=== PATIENT | female | born 1970 | race African-American/Black ===

== ENCOUNTER 2016-10-28 05:20 | Day surgery (SDC) | payer OTHER ==
[~2016-10-28] VITALS: Ht 170.2 cm; Wt 78.3 kg
--- NOTE | ~2016-10-28 | O ---
[facility] [place] [address] OPERATIVE REPORT Name: JHONATAN CARLOS Room #: 150-2 [facility] M.R.#: [id number] Admission: 10/28/16 Attend Phys: Ron Ruano MD Discharge: Date of : 68 Report #: [id number] THIS REPORT FOR: //name// CC: Jenn Ruano DATE OF SERVICE: 10/28/[address] Rno Ruano and Dr. Jenn Hensley. PREOPERATIVE DIAGNOSIS: Umbilical hernia. POSTOPERATIVE DIAGNOSIS: Umbilical hernia. PROCEDURE: Umbilical hernia repair. SURGEON: Ron Ruano MD. ANESTHESIA: Local IV sedation. DESCRIPTION OF PROCEDURE: The patient was brought to the operating room and placed on operative table in the supine position. Sequential compression devices were in place for DVT prophylaxis. The patient underwent IV sedation. The abdomen was then prepped and draped in a sterile fashion. There was no indication for preoperative antibiotics. The patient's umbilicus was then infiltrated with 0.5% Marcaine and 1% Xylocaine in a 1:1 mixture. A transverse infraumbilical skin incision was then performed using #15 scalpel blade. Hemostasis obtained using the electrocautery. Dissection was carried down through the subcutaneous tissue to the umbilicus where a small umbilical hernia defect was identified. There was some incarcerated preperitoneal fat that was dissected free and reduced back through the fascial defect. The fascial defect was then closed using interrupted [id number] 0 Prolene sutures. Deep and superficial subcutaneous tissue was then reapproximated using simple interrupted 2-0 Vicryl suture and the skin then closed with a running 4-0 subcuticular Vicryl stitch. Wound was then dressed with Dermabond, Telfa, 4 x 4 gauze, sponge and tape. The patient was then taken to the recovery room awake, alert and in good condition. Estimated blood loss was less than 10 mL and the patient tolerated the procedure well. All sponge, lap and instrument counts correct times 2. By: [id number] Ron Ruano MD /nt
--- NOTE | ~2016-10-28 | H ---
[facility] [place] [address] HISTORY AND PHYSICAL Name: JHONATAN CARLOS Room #: 150-2 [facility] M.R.#: [id number] Admission: 10/28/16 Attend Phys: Ron Ruano MD Discharge: Date of : 68 Report #: [id number] THIS REPORT FOR: //name// CC: Jenn Ruano DATE OF SERVICE: 10/28/2016 PATIENT OF: Dr. Ron Ruano and Dr. Jenn Hensley. CHIEF COMPLAINT: Umbilical pain. HISTORY OF PRESENT ILLNESS: The patient is a 45-year-old -[place] female who for about 6-8 months has had pain in the umbilicus as well as a palpable . She states it is much worse around her menstrual periods. She denied previous umbilical laparoscopic surgery. She saw Dr. Hensley who sent her for a CT scan of the abdomen, which did confirm the presence of an umbilical hernia. Of note, also on the CAT scan, there was an area of narrowing in the rectosigmoid. Dr. Hensley recommended during that time to undergo a colonoscopy and the patient refused at that point. She denies any recent changes in bowel or bladder habits and she eventually agreed to a colonoscopy, which was performed and was normal. She now returns for repair of her umbilical hernia. PAST MEDICAL HISTORY: Anemia and hypercholesterolemia. PAST SURGICAL HISTORY: Laparoscopy. MEDICATIONS: Iron. ALLERGIES: No known drug allergies. FAMILY HISTORY: Noncontributory. SOCIAL HISTORY: , does not smoke, drinks alcohol occasionally. REVIEW OF SYSTEMS: Pertinent positives as above. Full review of systems otherwise negative. PHYSICAL EXAMINATION: GENERAL: This is a well-developed, well-nourished -[place] female, in no acute distress. VITAL SIGNS: Stable, she is afebrile, height is 5 feet 7 inches, and weight is 180 pounds. HEENT: Unremarkable. LUNGS: Clear to auscultation bilaterally. [facility] [address] [place] [address] HISTORY AND PHYSICAL Name: JHONATAN CARLOS Room #: [address] [place] [address] M.R.#: [id number] Admission: 10/28/16 Attend Phys: Ron Ruano MD Discharge: Date of : 68 Report #: [id number] CARDIOVASCULAR: Regular rate and rhythm. No murmurs, S3 or S4. No PMI. ABDOMEN: Soft, flat, tender deep in the umbilicus with a palpable small umbilical hernia, which is tender. No other organomegaly or masses. No inguinal hernias. EXTREMITIES: No clubbing, cyanosis, or edema. NEUROLOGIC: Intact with a clear mental status. IMPRESSION: A 45-year-old -[place] female with an umbilical hernia. I fully discussed with the patient the diagnosis, prognosis, and treatment options. I have recommended an umbilical hernia repair. She states she understands and agrees to proposed surgery. PLAN: We will perform an umbilical hernia repair under local IV sedation as an outpatient at [facility]. The procedure and its risks, benefits, and possible complications were fully discussed with the patient, she states she understands and agrees to proposed surgery. By: [id number] Ron Ruano MD /nt
[~2016-10-28 05:20] MED LIST: QUASENSE1 EACH PO
[2016-10-28 12:31] VITALS: BP 134/79
[2016-10-28] MEDS ORDERED: NORCO 5-325 TA1 EACH PO (13:32)
[2016-10-28 14:39] VITALS: BP 134/79
== END 2016-10-28 15:18 | disposition home or self-care (01) ==
LOC: OR 05:20 → TBA 05:39 → OR 11:45
DX: K42.0 Umbilical hernia with obstruction, without gangrene (principal); D64.9 Anemia, unspecified; E78.00 Pure hypercholesterolemia, unspecified; Z98.890 Other specified postprocedural states
CPT/HCPCS: 50010; 50101; 50386; 50417; 54026; 54118; 56525; 56526; 62110; 62900; 70005